=== PATIENT | male | born 1965 | race Caucasian/White ===

== ENCOUNTER 2022-03-19 13:58 | Inpatient (IN) | payer MEDICAID ==
[~2022-03-19] VITALS: Ht 165.1 cm; Wt 68.0 kg
[2022-03-19 14:07] VITALS: BP_SYST 128
--- NOTE | 2022-03-19 16:00 | NUR ---
ER Dr. Castellon examining patient on [facility] in [facility].
--- NOTE | 2022-03-19 16:52 | NUR ---
Placed in room 6 . Placed on alarm security or surveillance monitor, blood pressure machine and pulse oximeter. To gown for exam. Side rails up. Report given to MAGGIE BOOKER.
--- NOTE | 2022-03-19 16:54 | NUR ---
Assumed care of patient MARIAN after he was seen slumped over in wheelchair. Patient has been unresponsive and unable to retrieve a hx from at this time. Altered mental status, A&Ox0. Strong odor of urine coming from patient and belongings. maintenance shop technician report patient has hx of parapalegia and relies on wheelchair for mobility. maintenance shop technician state that wheelchair was left at scene because it was covered in human urine and feces. Patient appears in no acute distress and is sleeping on gurney.
--- NOTE | 2022-03-19 17:00 | NUR ---
LAB AT THE BEDSIDE FOR BLOOD DRAW
--- NOTE | 2022-03-19 17:00 | NUR ---
PT BIBA AFTER BEING FOUND SLUMMED OVER ON THE STREET IN HIS WHEELCHAIR, SOILED IN FECES AND URINE. PT ARRIVES INCOMPREHENSIBLE, UNABLE TO ANSWER QUESTIONS MEANINGFULLY, DISHEVELED AND MALODEROUS. PT IS TACHYCARDIC IN 120S OTHER VSS
--- NOTE | 2022-03-19 17:05 | NUR ---
PER EMS THEY DID NOT BRING PT'S WHEELCHAIR DUE TO IT BEING SOILED, PT WILL NEED WC FOR DDC
[2022-03-19 17:09] LABS: HEMATOCRIT 32.9 % (36-54); HEMOGLOBIN 9.6 g/dL (14.0-18.0); MEAN CORPUSCULAR HEMOGLOBIN 19 pg (27-31); MEAN CORPUSCULAR HGB CONC 29 % (32-36); MEAN CORPUSCULAR VOLUME 66 fL (79.0-98.0); PLATELET COUNT (AUTO) 319 K/uL (130-430); RED BLOOD CELL COUNT(AUTO) 4.97 MIL/uL (4.2-6.2); RED CELL DISTRIBUTION WIDTH 17.8 % (9.0-15.0); WHITE BLOOD COUNT (AUTO) 23.8 K/uL (4.8-10.8)
[2022-03-19 17:15] LABS: ANION GAP 14 (5-15); CALCIUM 8.3 mg/dL (8.4-11.0); CHLORIDE 102 mmol/L (98-107); CREATININE 0.64 mg/dL (0.55-1.30); GLUCOSE 89 mg/dL (70-99); POTASSIUM 3.4 mmol/L (3.5-5.1); SODIUM SERUM 137 mmol/L (136-145); UREA NITROGEN, BLOOD 13 mg/dL (8-21)
[2022-03-19 17:17] LABS: GFR AFRICAN AMERICAN 167 mL/min (>90)
[2022-03-19 17:26] LABS: ALANINE AMINOTRANSFERASE 43 U/L (12-78); ALBUMIN 3.2 g/dL (3.4-4.8); ASPARTATE AMINOTRANSFERASE 39 U/L (10-37); LACTATE DEHYDROGENASE 246 U/L (85-227); TOTAL BILIRUBIN 2.1 mg/dL (0.0-1.0)
[2022-03-19 17:28] LABS: BAND % (MANUAL) 2 % (0-6); BASOPHILS % (MANUAL) 0 % (0-2); EOSINOPHILS % (MANUAL) 0 % (0-7); LYMPHOCYTES % (MANUAL) 10 % (20-46); MONOCYTES % (MANUAL) 6 % (0-11)
[2022-03-19] MEDS ORDERED: NACL 0.9% 1,000 ML IV ONE ×2 (17:30→19:45)
--- NOTE | 2022-03-19 17:30 | NUR ---
COVID SWAB DONE AND SENT TO LAB
--- NOTE | 2022-03-19 17:35 | NUR ---
PT'S CLOTHING REMOVED, SOAKED IN OLD URINE, MALODEROUS, REDENNED SKIN TO THIGHS,BUTTOCKS, NEAR PENIS AND ABD. HOT TO TOUCH. PT IS ABLE TO NOD ANSWERS TO QUESTIONS BUT IS A POOR HISTORIAN.
--- NOTE | 2022-03-19 17:45 | NUR ---
PT'S IV INFILTRATED. REMOVED AND BLEEDING CONTROLLED WITH GAUZE. # 20 gauge angiocath placed to RFA. Use of asceptic technique. Opsite placed over site. Blood return noted. Flushed with 10 cc of normal saline. No evidence of infiltration noted. Patient tolerated well.
[2022-03-19 17:54] LABS: INR 1.6 (0.80-1.20); PROTHROMBIN TIME 16.6 SECS (9.5-12.5)
[2022-03-19 17:54] LABS: BILIRUBIN,URINE NEGATIVE (NEGATIVE); BLOOD, URINE NEGATIVE (NEGATIVE); CLARITY/URINE CLEAR (CLEAR); COLOR,URINE YELLOW (YELLOW); GLUCOSE,URINE NEGATIVE (NEGATIVE); KETONES,URINE 2+ (NEGATIVE); LEUKOCYTE ESTERASE ,URINE NEGATIVE (NEGATIVE); NITRITE, URINE NEGATIVE (NEGATIVE); PH,URINE 6.5 (5.0-8.0); PROTEIN URINE 1+ (NEGATIVE)
[2022-03-19] MEDS ORDERED: cefTRIAXone 1 GM in D5W 50 ML IV ONE (18:00)
[2022-03-19] MEDS ORDERED: VANCOMYCIN HCL 1,000 MG in NS 250 ML IV ONE (18:00)
[2022-03-19] MEDS ORDERED: VANCOMYCIN HCL 1000 MG/VIAL IV ONE (18:01)
[2022-03-19] MEDS ORDERED: cefTRIAXone 1 GM VIAL ONE ×2 (18:01)
[2022-03-19 18:09] LABS: BACTERIA,URINE FEW /HPF (None Seen); MUCUS,URINE None Seen /LPF (None Seen); RBC,URINE 0-3 /HPF (0-3); WBC,URINE 0-3 /HPF (0-3)
--- NOTE | 2022-03-19 18:45 | NUR ---
Patient transported to radiology via GURNEY, accompanied by STAFF.
--- NOTE | 2022-03-19 18:55 | NUR ---
Returned from radiology, back to room.
--- NOTE | 2022-03-19 19:17 | NUR ---
REPORT GIVEN TO MAGGIE WEATHERS FOR CONTINUING CARE
--- NOTE | 2022-03-19 19:30 | NUR ---
ASSUME CARE OF THIS PATIENT ASLEEP OPENS EYES TO VERBAL STIMULI, PATIENT APPEARS DROWSY, PT NOD TO QUESTION. UNABLE TO GET MEDICAL HISTORY ON THIS PATIENT AT THIS TIME. IVF INFUSING, NOTED ST ON CARDIAC MONITORS, INFORMED DR. ROPER ON PATIENT CURRENT VIATALS. ORDER TO RECEIVED ANOTHER 1L OF NS BOLUS. WILL CONTINUE TO MONITOR.
--- NOTE | 2022-03-19 19:35 | NUR ---
ASSUME CARE OF THIS PATIENT ASLEEP OPENS EYE TO INTERMITTENTLY TO VERVBAL STIMULI APPEARS DROWSY. PER REPORT RECEIVED PT FOUND ON THE STREET BY YU WILCOX. PER REPORT UPON ER ARRIVAL PT WAS SOILED WITH FECES AND URINE. NOTED RUE CONTRACTED. +4 EDEMA TO BLE AND NOTED REDNESS TO PT THIGH AREAS. UNABLE TO GET OTHER MEDICAL HSITORY AT THIS TIME. WILL CONTINUE TO MONITOR.
--- NOTE | 2022-03-19 19:52 | NUR ---
CALLED ADMITTING SPOKE TO KRISTOPHER TO CALL [facility] FOR ADMISSION AUTH.
--- NOTE | 2022-03-19 20:37 | NUR ---
Randa antonio in [facility] - 03/19/22 at 2038 by [id number] FEED PATIENT WITH JELLO AND PUDDING, PATIENT TOLERATED WELL.
[2022-03-19] MEDS: NACL 0.9% 1,000 ML IV SCH (23:22)
--- NOTE | 2022-03-19 23:54 | NUR ---
SPOKE WITH PATIENT ADONAY GRANADOS, AND GET INFO ON PATIENT, INFORMED HER THAT PATIENT HERE AND BIBA FOUND ON THE [place], [place]. SHE STATED THAT PATIENT USED TO HAVE A PLACED TO STAY, UNCLEAR IF PATIENT IS HOMELESS. 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 SHE ALSO STATED THAT PT IS KNOW FOR OPIODS AND METH ABUSE. PER ROBERTA INCASE PATIENT WILL BE DC SHE CAN BE REACH AT [phone].
--- NOTE | 2022-03-20 01:15 | NUR ---
Transfer pt via gurney to room 105, pt asleep and drowsy. SBAR report given to Jason SERRANO
--- NOTE | 2022-03-20 02:37 | NUR ---
PATIENT IS A 56 YEAR OLD MALE ADMITTED UNDER THE CARE OF DOCTOR WERO PEGUERO MD FOR LOWER EXTREMITY CELLULITIS. HARSH MEAN RN
[2022-03-20 02:44] VITALS: BP_SYST 143
[2022-03-20 04:55] VITALS: BP_SYST 166
--- NOTE | 2022-03-20 07:48 | NUR ---
INITIAL ROUNDS Received pt AAOx1, pt mumbled "move my legs'. Plan of care for the reviewed with pt-pt just mumbling. IVF infusing well to RFA at ordered rate with no s/s resp distress, no s/s pain or discomfort once he was repositioned. HOB elevated for aspiration precautions, side rails up x3, bed alarm on, room close to nursing station for safety. Call light within reach.
[2022-03-20] MEDS ORDERED: MUPIROCIN 2% TOPICAL OINTMENT 22 GM NS PRN (08:30)
[2022-03-20] MEDS ORDERED: MORPHINE 2 MG/ML INJ. SYRINGE IVP PRN ×2 (08:30)
[2022-03-20] MEDS ORDERED: MAGNESIUM SULFATE 50 ML IV PRN (08:30)
[2022-03-20] MEDS ORDERED: NALOXONE HCL 0.4 MG/ML AMP (NARCAN) IVP PRN ×2 (08:30)
[2022-03-20] MEDS ORDERED: ONDANSETRON HCL 4 MG/2 ML VIAL IVP PRN (08:30)
[2022-03-20] MEDS ORDERED: ACETAMINOPHEN 325 MG TABLET PO PRN (08:30)
[2022-03-20] MEDS ORDERED: POTASSIUM CHLORIDE 20 MEQ TAB.PRT.SR PO PRN (08:30)
[2022-03-20] MEDS ORDERED: DOCUSATE SODIUM 100 MG CAPSULE PO PRN (08:30)
[2022-03-20] MEDS ORDERED: LORazepam 2 MG/ML VIAL IVP PRN (08:30)
[2022-03-20] MEDS ORDERED: ZOLPIDEM TARTRATE 5 MG TABLET PO PRN (08:30)
[2022-03-20] MEDS ORDERED: METOPROLOL TARTRATE 5 MG/5 ML AMPUL IVP PRN (08:45)
--- NOTE | 2022-03-20 08:53 | NUR ---
EMESIS Pt vomited up thin, brown emesis, pt cleaned up, mouth rinsed and fresh towels placed. Will give Zofran as ordered.MD aware and order given for GI consult. Aspiration precautions remain in place.
[2022-03-20] MEDS: METOPROLOL TARTRATE 25 MG TABLET PO SCH ×2 (09:00→20:53)
[2022-03-20] MEDS: HEPARIN SODIUM,PORCINE 5,000 UNITS/ML VIAL SUBCUT SCH ×2 (09:00→20:55)
[2022-03-20] MEDS ORDERED: ONDANSETRON HCL 4 MG/2 ML VIAL ONE (09:06)
[2022-03-20] MEDS: metroNIDAZOLE 500 mg/NS 100 ML IV SCH ×3 (09:15→23:00)
[2022-03-20 09:21] LABS: BASOPHILS % (AUTO) 0.1 % (0.0-2.0); HEMATOCRIT 29.3 % (36-54); HEMOGLOBIN 9.1 g/dL (14.0-18.0); LYMPHOCYTES # (AUTO) 0.9 K/uL (1.0-5.5); LYMPHOCYTES % (AUTO) 5.6 % (20.5-51.5); MEAN CORPUSCULAR HEMOGLOBIN 20 pg (27-31); MEAN CORPUSCULAR HGB CONC 31 % (32-36); MEAN CORPUSCULAR VOLUME 64 fL (79.0-98.0); NEUTROPHILS # (AUTO) 14.5 K/uL (1.8-7.7); NEUTROPHILS % (AUTO) 88.3 % (40.0-70.0); PLATELET COUNT (AUTO) 333 K/uL (130-430); RED BLOOD CELL COUNT(AUTO) 4.58 MIL/uL (4.2-6.2); RED CELL DISTRIBUTION WIDTH 17.6 % (9.0-15.0); WHITE BLOOD COUNT (AUTO) 16.4 K/uL (4.8-10.8)
--- NOTE | 2022-03-20 09:28 | NUR ---
CONSULT ID LE CELLULITIS,UTI DR MUELLER [phone] S/W [place] OFFICE
--- NOTE | 2022-03-20 09:29 | NUR ---
CONSULT GI INTRACTABLE VOMITING DR BARRON [phone] S/W [place] OFFICE
--- NOTE | 2022-03-20 09:30 | NUR ---
CONSULT NEUROLOGY ALTERED DR DILLARD.BARBARA SENT TEXT MESSAGE TO DR DILLARD
[2022-03-20 11:16] LABS: ACETAMINOPHEN < 1 ug/mL (1-30)
[2022-03-20 11:33] VITALS: BP_SYST 152
--- NOTE | 2022-03-20 12:15 | NUR ---
[employer]riculture Internship CARTRIDGE MAKER Meche attempted engagement with patient at the request of Process Description Writer Jero to assess for housing status and social work professor needs. Patient was vomiting and unable to meet CARTRIDGE MAKER will continue to be available as needed
--- NOTE | 2022-03-20 13:06 | NUR ---
STELLA TECH HERE TO TAKE PATIENT TO [facility]. PATIENT VOMITING DARK THIN WATERY EMESIS AND IS AT RISK TO ASPIRATION THE PT WILL LIE ON HIS BACK FOR A PERIOD OF TIME. WILL NOTIFY
[2022-03-20] MEDS: NACL 0.9% 1,000 ML IV SCH ×2 (14:26→17:15)
[2022-03-20] MEDS: FLUCONAZOLE 200 mg/ NS 100 ML IV SCH (14:28)
[2022-03-20 15:25] VITALS: BP_SYST 149
[2022-03-20 16:56] LABS: BARBITURATE, URINE NEGATIVE (NEG <=200); METHAMPHETAMINES SCREEN,URINE POSITIVE (NEG <=500); OPIATE, URINE POSITIVE (NEG <=100); URINE AMPHETAMINE POSITIVE (NEG <=500)
[2022-03-20 16:57] LABS: BENZODIAZEPINE, URINE NEGATIVE (NEG <=150); CANNABINOID, URINE NEGATIVE (NEG <=50); COCAINE, URINE NEGATIVE (NEG <=150); PHENCYCLIDINE SCREEN,URINE NEGATIVE (NEG <=25); UR TRICYCLIC ANTIDEPRESSANTS NEGATIVE (NEG <=300); URINE METHADONE NEGATIVE (NEG <=200); URINE OXYCODONE SCREEN NEGATIVE (NEG <=100); URINE PROPOXYPHENE SCREEN NEGATIVE (NEG <=300)
[2022-03-20] MEDS: cefTRIAXone 1 GM IVPB PREMIX 50 ML IV SCH (18:27)
--- NOTE | 2022-03-20 19:28 | NUR ---
CLOSING NOTE Pt resting quietly in bed with no s/s resp distress, no s/s pain or discomfort, no further emesis. IVF infusing well at ordered rate with no s/s infiltration to site. ASpiration, skin and safety precautions remain in place. Call light within reach.
--- NOTE | 2022-03-20 20:00 | NUR ---
Received pt AAOx1, pt asleep upon primary assessment. Plan of care for the reviewed with pt-pt just mumbling. IVF infusing well to lungs diminished at bases, bowel sounds present. No sign of coffee ground emesis upon handoff. Pt has EEG and HIDA scan scheduled for the AM possibly HOB elevated for aspiration precautions, side rails up x3, bed alarm on, room close to nursing station for safety. Call light within reach.
[2022-03-20 22:45] VITALS: BP_SYST 129
[2022-03-20 22:46] VITALS: BP_SYST 129
[2022-03-21 00:36] VITALS: BP_SYST 139
--- NOTE | 2022-03-21 02:46 | NUR ---
pt present with coffe ground emesis. changed linens and gown. Pt resting comfortable on rught side. Will continue to moitor
[2022-03-21] MEDS: NACL 0.9% 1,000 ML IV SCH ×3 (03:15→15:27)
[2022-03-21] MEDS: metroNIDAZOLE 500 mg/NS 100 ML IV SCH ×3 (06:02→21:12)
--- NOTE | 2022-03-21 07:15 | NUR ---
OPENING NOTE RECEIVED SBAR FROM NIGHT RN. PATIENT IN BED, RESPIRATIONS EVEN, NON LABORED, BED IN LOW AND LOCKED POSITION, CALL LIGHT WITHIN REACH, BED ALARM ON. IVF'S RUNNING ORDERED.
[2022-03-21 08:00] VITALS: BP_SYST 135
--- NOTE | 2022-03-21 08:15 | NUR ---
nurse note patient agitated, unable to verbalize needs, patient dry, repositioned, continues to yell out. bed in low and locked position, call light within reach, bed alarm on.
[2022-03-21] MEDS: METOPROLOL TARTRATE 25 MG TABLET PO SCH ×2 (08:19→21:11)
[2022-03-21] MEDS: HEPARIN SODIUM,PORCINE 5,000 UNITS/ML VIAL SUBCUT SCH ×2 (08:19→21:00)
--- NOTE | 2022-03-21 09:00 | NUR ---
BATHROOM ASSISTED PATIENT AMBULATE TO THE BATHROOM VOIDED, RETURNED TO BED, BED IN LOW AND LOCKED POSITION CALL LIGHT WITHIN REACH. BED ALARM ON Addendum: 03/21/22 at 1331 by Deja Giordano RN entered on wrong patient
--- NOTE | 2022-03-21 09:00 | NUR ---
nurse note patient incontinent of bladder, provided milton care, changed linens, repositioned patient. no signs of distress noted
[2022-03-21 09:42] LABS: BASOPHILS # (AUTO) 0.1 K/uL (0.0-0.2); BASOPHILS % (AUTO) 0.5 % (0.0-2.0); EOSINOPHILS % (AUTO) 0.1 % (0.0-4.0); HEMATOCRIT 26.7 % (36-54); HEMOGLOBIN 8.3 g/dL (14.0-18.0); LYMPHOCYTES # (AUTO) 1.2 K/uL (1.0-5.5); LYMPHOCYTES % (AUTO) 10.7 % (20.5-51.5); MEAN CORPUSCULAR HEMOGLOBIN 20 pg (27-31); MEAN CORPUSCULAR HGB CONC 31 % (32-36); MEAN CORPUSCULAR VOLUME 65 fL (79.0-98.0); MONOCYTES # (AUTO) 0.7 K/uL (0.0-1.0); MONOCYTES % (AUTO) 6.4 % (1.7-9.3); NEUTROPHILS # (AUTO) 9.6 K/uL (1.8-7.7); NEUTROPHILS % (AUTO) 82.3 % (40.0-70.0); PLATELET COUNT (AUTO) 333 K/uL (130-430); RED BLOOD CELL COUNT(AUTO) 4.11 MIL/uL (4.2-6.2); RED CELL DISTRIBUTION WIDTH 17.9 % (9.0-15.0); WHITE BLOOD COUNT (AUTO) 11.6 K/uL (4.8-10.8)
[2022-03-21 10:06] LABS: C-REACTIVE PROTEIN QUANT 15.3 mg/dL (0-0.5); CALCIUM 7.3 mg/dL (8.4-11.0); CREATININE 0.5 mg/dL (0.55-1.30)
[2022-03-21 10:17] LABS: POTASSIUM 2.8 mmol/L (3.5-5.1)
--- NOTE | 2022-03-21 10:20 | NUR ---
critical lab potassium 2.8. Informed Dr Ochoa, on the floor. New orders received
[2022-03-21] MEDS ORDERED: KCL 20 mEq in NS 1000 mL 1,000 ML IV SCH (10:30)
[2022-03-21] MEDS ORDERED: POTASSIUM CHLORIDE 60 MEQ in NS 500 ML IV ONE (11:00)
[2022-03-21 11:24] VITALS: BP_SYST 140
[2022-03-21 12:06] LABS: HEPATITIS A AB, IgM Negative (Negative); HEPATITIS B CORE AB, IgM Negative (Negative); HEPATITIS B SURFACE AG Negative (Negative)
--- NOTE | 2022-03-21 12:18 | NUR ---
SECURITY SERVICES SPECIALIST KUNAL Mcgregor responded to a request for social service support to address patient's housing status and assess for needs. KUNAL Mcgregor reviewed patient's medical record which depicts patient is homeless and was found in a wheelchair. Notes also depict EMS left wheelchair onsite due to be covered in urine and feces. KUNAL Mcgregor attempted to meet with patient but was unable to arouse patient. KUNAL consulted with assigned RN who shared patient has been asleep through out the day. FIELD APPLICATIONS SPECIALIST will followup with patient at a later time.
--- NOTE | 2022-03-21 12:56 | NUR ---
Discharge Planning: DCP faed pt referral to [facility] P#[phone] DCP to follow up
--- NOTE | 2022-03-21 13:13 | NUR ---
Patient will have a wheelchair delivered to the bedside by [facility]-ordered by [facility]
--- NOTE | 2022-03-21 13:32 | NUR ---
nurse note patient incontinent of bladder, provided milton care, changed linens, repositioned patient. no signs of distress noted
--- NOTE | 2022-03-21 13:54 | NUR ---
HIDA SCAN PATIENT LEFT FOR HIDA SCAN, VIA GURNEY. IV SL
--- NOTE | 2022-03-21 13:54 | NUR ---
iv LEFT AC IV BECAME DISLODGED. INTACT, NO BLEEDING.
--- NOTE | 2022-03-21 15:04 | NUR ---
Dietitian Recommendations * Resume clear liquid diet if/when medically appropriate * Advance diet if/when medically appropriate LP, RD Please refer to Nutrition Assessment for details. Addendum: 03/21/22 at [address] Amended: Links added.
--- NOTE | 2022-03-21 15:15 | NUR ---
missing med called pharm Diflucan missing from cassette. they will bring a new one
[2022-03-21] MEDS: FLUCONAZOLE 200 mg/ NS 100 ML IV SCH (15:27)
[2022-03-21 15:37] VITALS: BP_SYST 143
--- NOTE | 2022-03-21 16:24 | NUR ---
EGD CONSENT SPOKE WITH DR SMITH, INFORMED DUE TO PATIENT A & 0 X 1, THAT PATIENT IS UNABLE TO SIGN CONSENT FOR EGD, DR NEEDS TO PUT A NOT REGARDING MEDICAL NECESSITY.
--- NOTE | 2022-03-21 16:26 | NUR ---
EGD SPOKE WITH MAGGIE GARCIA IN GI. INFORMED THAT PATIENT IS A & O X 1. UNABLE TO SIGN CONSENT FOR EGD. DR BARRON AND DR SMITH NEED TO ATTEST TO MEDICAL NECESSITY FOR EGD. RADHA STATED THAT HE WILL INFORM DR BARRON IN THE MORNING
--- NOTE | 2022-03-21 16:32 | NUR ---
WHEELCHAIR INVENTORIED NEW WHEELCHAIR THAT WAS DELIVERED
--- NOTE | 2022-03-21 17:35 | NUR ---
nurse note patient incontinent of bladder, provided milton care, changed linens, repositioned patient. no signs of distress noted
--- NOTE | 2022-03-21 17:53 | NUR ---
EEG EEG BEING DONE BEDISDE
[2022-03-21] MEDS: cefTRIAXone 1 GM IVPB PREMIX 50 ML IV SCH (18:43)
--- NOTE | 2022-03-21 19:06 | NUR ---
closing note Provided SBAR to night RN. patient in bed, respirations even, non labored, bed in low and locked position. Call light within reach, bed alarm on. IVF's running as ordered. Endorsed care to night RN
--- NOTE | 2022-03-21 19:15 | NUR ---
OPENING NOTES Patient resting in bed - no s/s pain or distress noted. Respirations even and unlabored - head of bed elevated. IV site patent - no s/s redness, infection, or infiltration. Bed locked and in lowest position. Call light within reach. Patient confused and has no points of contact - scheduled for EGD tomorrow, therefore 2 doctors are needed for consent signing.
[2022-03-21 20:00] VITALS: BP_SYST 133
[2022-03-22 01:49] VITALS: BP_SYST 147
[2022-03-22] MEDS: NACL 0.9% 1,000 ML IV SCH ×2 (04:25→16:39)
[2022-03-22] MEDS: metroNIDAZOLE 500 mg/NS 100 ML IV SCH ×3 (06:58→22:41)
[2022-03-22 07:30] LABS: CALCIUM 7.1 mg/dL (8.4-11.0); CREATININE 0.45 mg/dL (0.55-1.30); POTASSIUM 3.3 mmol/L (3.5-5.1)
[2022-03-22 07:33] LABS: INR 1.3 (0.80-1.20); PROTHROMBIN TIME 13.3 SECS (9.5-12.5)
--- NOTE | 2022-03-22 07:44 | NUR ---
CLOSING NOTES Patient resting in bed - no s/s pain or distress noted. respirations even and unlabored - head of bed elevated. IV site patent - no s/ s redness, infection, or infiltration. patient moved to 112A at 0700 due to roommate being positive for MRSA. Cleaned at 0500 linens changed. At change of shift a GI nurse Manny states that a medical necessity form was needed to be signed by 2 doctors and placed in chart. However, charge nurse Samanta states that only the doctors need to put in an acknowledgement of medical necessity in their PROGRESS NOTES due to patient being confused and no steele of contract attorney. Endorsed to Cristina SERRANO
[2022-03-22 07:53] LABS: BASOPHILS % (AUTO) 0.4 % (0.0-2.0); EOSINOPHILS % (AUTO) 0.3 % (0.0-4.0); HEMOGLOBIN 8.7 g/dL (14.0-18.0); LYMPHOCYTES # (AUTO) 1.7 K/uL (1.0-5.5); LYMPHOCYTES % (AUTO) 20.3 % (20.5-51.5); MEAN CORPUSCULAR HEMOGLOBIN 20 pg (27-31); MEAN CORPUSCULAR HGB CONC 31 % (32-36); MEAN CORPUSCULAR VOLUME 66 fL (79.0-98.0); MONOCYTES # (AUTO) 0.5 K/uL (0.0-1.0); MONOCYTES % (AUTO) 6.2 % (1.7-9.3); NEUTROPHILS # (AUTO) 6.1 K/uL (1.8-7.7); PLATELET COUNT (AUTO) 351 K/uL (130-430); RED BLOOD CELL COUNT(AUTO) 4.26 MIL/uL (4.2-6.2); RED CELL DISTRIBUTION WIDTH 17.8 % (9.0-15.0); WHITE BLOOD COUNT (AUTO) 8.4 K/uL (4.8-10.8)
[2022-03-22 08:00] VITALS: BP_SYST 141
--- NOTE | 2022-03-22 08:00 | NUR ---
Morning notes: Pt A/Ox1 resting in bed, HOB down. No S/S of respiratory or cardiac distress, RFA 22G is clean dry and intact, with ordered fluids running. Fall and safety precautions in place, call light with in reach, will continue to monitor.
[2022-03-22 09:38] LABS: NEUTROPHILS % (AUTO) 72.8 % (40.0-70.0)
[2022-03-22] MEDS: METOPROLOL TARTRATE 25 MG TABLET PO SCH ×2 (10:29→22:41)
[2022-03-22] MEDS: HEPARIN SODIUM,PORCINE 5,000 UNITS/ML VIAL SUBCUT SCH ×2 (10:31→22:42)
[2022-03-22 11:39] VITALS: BP_SYST 131
[2022-03-22] MEDS: FLUCONAZOLE 200 mg/ NS 100 ML IV SCH (15:41)
[2022-03-22 16:27] VITALS: BP_SYST 134
[2022-03-22] MEDS: cefTRIAXone 1 GM IVPB PREMIX 50 ML IV SCH (18:18)
--- NOTE | 2022-03-22 19:01 | NUR ---
Closing notes: Pt A/Ox1 resting in bed, HOB down. No S/S of respiratory or cardiac distress, LFA 22G is clean dry and intact, with ordered fluids running. Fall and safety precautions in place, call light with in reach, will endorse to cyber instructor.
[2022-03-22 21:45] VITALS: BP_SYST 144
[2022-03-23] VITALS: BP_SYST 132
[2022-03-23] MEDS: NACL 0.9% 1,000 ML IV SCH ×2 (06:17→15:15)
[2022-03-23] MEDS: metroNIDAZOLE 500 mg/NS 100 ML IV SCH ×3 (06:17→23:39)
[2022-03-23 06:39] LABS: BASOPHILS % (AUTO) 0.7 % (0.0-2.0); EOSINOPHILS # (AUTO) 0.1 K/uL (0.0-0.4); EOSINOPHILS % (AUTO) 1.4 % (0.0-4.0); HEMATOCRIT 27.3 % (36-54); HEMOGLOBIN 8.4 g/dL (14.0-18.0); LYMPHOCYTES # (AUTO) 1.7 K/uL (1.0-5.5); LYMPHOCYTES % (AUTO) 29.3 % (20.5-51.5); MEAN CORPUSCULAR HEMOGLOBIN 20 pg (27-31); MEAN CORPUSCULAR HGB CONC 31 % (32-36); MEAN CORPUSCULAR VOLUME 65 fL (79.0-98.0); MONOCYTES # (AUTO) 0.4 K/uL (0.0-1.0); MONOCYTES % (AUTO) 7.8 % (1.7-9.3); NEUTROPHILS # (AUTO) 3.5 K/uL (1.8-7.7); PLATELET COUNT (AUTO) 352 K/uL (130-430); RED CELL DISTRIBUTION WIDTH 17.3 % (9.0-15.0); WHITE BLOOD COUNT (AUTO) 5.7 K/uL (4.8-10.8)
[2022-03-23 06:52] LABS: CREATININE 0.39 mg/dL (0.55-1.30)
--- NOTE | 2022-03-23 07:00 | NUR ---
PT SLEPT THROUGH MOST OF THE NIGHT. PT EASILY AROUSABLE THROUGHOUT THE NIGHT. PT DID NOT ATTEMPT TO CLIMB OUT OF BED. PT CLEANED AND REPOSITIONED THROUGH THE NIGHT.
[2022-03-23 07:42] LABS: NEUTROPHILS % (AUTO) 60.8 % (40.0-70.0)
[2022-03-23 08:00] VITALS: BP_SYST 141
--- NOTE | 2022-03-23 08:00 | NUR ---
Morning notes: Pt A/Ox1 resting in bed, HOB down. No S/S of respiratory or cardiac distress, LFA 22G is clean dry and intact, with ordered fluids running. Fall and safety precautions in place, call light with in reach, will continue to monitor.
[2022-03-23 08:23] LABS: CALCIUM 6.8 mg/dL (8.4-11.0); POTASSIUM 2.9 mmol/L (3.5-5.1)
[2022-03-23] MEDS ORDERED: KCL 20 mEq in 100 mL (PREMIX) 100 ML IV SCH (09:00)
--- NOTE | 2022-03-23 09:34 | NUR ---
RN note: Received critical potassium 2.7, and calcium 6.8, notified Dr. Ochoa at [facility], ordered IV 40meq of K.
[2022-03-23] MEDS: METOPROLOL TARTRATE 25 MG TABLET PO SCH ×2 (10:33→23:32)
[2022-03-23] MEDS: HEPARIN SODIUM,PORCINE 5,000 UNITS/ML VIAL SUBCUT SCH ×2 (10:35→23:39)
--- NOTE | 2022-03-23 11:00 | NUR ---
RN note: IV potassium not available yet, called pharmacy.
[2022-03-23 12:30] VITALS: BP_SYST 138
[2022-03-23] MEDS: FLUCONAZOLE 200 mg/ NS 100 ML IV SCH (13:58)
--- NOTE | 2022-03-23 15:00 | NUR ---
RN note: IV potassium still not available, will call pharmacy again.
[2022-03-23 16:57] VITALS: BP_SYST 152
[2022-03-23] MEDS: cefTRIAXone 1 GM IVPB PREMIX 50 ML IV SCH (18:00)
--- NOTE | 2022-03-23 19:01 | NUR ---
Closing notes: Pt A/Ox1 resting in bed, HOB down. No S/S of respiratory or cardiac distress, LFA 22G is clean dry and intact, with ordered fluids running. Fall and safety precautions in place, call light with in reach, will endorse to shift mgr.
--- NOTE | 2022-03-23 19:04 | NUR ---
RN note: IV potassium now available, will endorse to sustainability coach.
[2022-03-24] MEDS: NACL 0.9% 1,000 ML IV SCH (05:20)
[2022-03-24 06:26] LABS: BASOPHILS # (AUTO) 0.1 K/uL (0.0-0.2); BASOPHILS % (AUTO) 0.7 % (0.0-2.0); EOSINOPHILS # (AUTO) 0.1 K/uL (0.0-0.4); EOSINOPHILS % (AUTO) 1.9 % (0.0-4.0); HEMATOCRIT 28.5 % (36-54); LYMPHOCYTES # (AUTO) 2.1 K/uL (1.0-5.5); LYMPHOCYTES % (AUTO) 29.1 % (20.5-51.5); MEAN CORPUSCULAR HEMOGLOBIN 20 pg (27-31); MEAN CORPUSCULAR HGB CONC 31 % (32-36); MEAN CORPUSCULAR VOLUME 65 fL (79.0-98.0); MONOCYTES # (AUTO) 0.5 K/uL (0.0-1.0); MONOCYTES % (AUTO) 7.6 % (1.7-9.3); NEUTROPHILS # (AUTO) 4.3 K/uL (1.8-7.7); NEUTROPHILS % (AUTO) 60.7 % (40.0-70.0); PLATELET COUNT (AUTO) 443 K/uL (130-430); RED BLOOD CELL COUNT(AUTO) 4.41 MIL/uL (4.2-6.2); RED CELL DISTRIBUTION WIDTH 17.2 % (9.0-15.0); WHITE BLOOD COUNT (AUTO) 7.2 K/uL (4.8-10.8)
[2022-03-24 06:47] LABS: CREATININE 0.45 mg/dL (0.55-1.30); POTASSIUM 3.1 mmol/L (3.5-5.1)
[2022-03-24 07:16] LABS: CALCIUM 6.9 mg/dL (8.4-11.0)
--- NOTE | 2022-03-24 07:30 | NUR ---
Report received from outgoing nurse and care received
[2022-03-24 08:00] VITALS: BP_SYST 120
--- NOTE | 2022-03-24 08:15 | NUR ---
When taking morning VS patient stated he wanted to leave AMA and would sign paperwork. States he doesn't want to take anymore meds and leave in his wheelchair. Pt is A&Ox3 and able to states he's able to sign paperwork
[2022-03-24] MEDS: HEPARIN SODIUM,PORCINE 5,000 UNITS/ML VIAL SUBCUT SCH (09:53)
[2022-03-24] MEDS: METOPROLOL TARTRATE 25 MG TABLET PO SCH (09:53)
--- NOTE | 2022-03-24 10:49 | NUR ---
Pt understands it is against medical advise to leave, states he does not want anymore medication, wants his IV catheter removed, and wants to leave. Already signed AMA form. IV catheter was removed, and patient was assisted into his wheelchair to leave the hospital at 1045, AMA form signed and placed in the chart.
--- NOTE | 2022-03-24 13:10 | NUR ---
AMA dispo code 07
== END 2022-03-24 10:50 | disposition left against medical advice (07) | DRG 720 ==
LOC: SED 13:58 → STU 21:02
PROVIDERS: ADMIT General Practice; ATTEND General Practice
PROC: 4A10X4Z Monitoring of Central Nervous Electrical Activity, External Approach (ICD-10-PCS; principal; 2022-03-21)
DX: A41.9 Sepsis, unspecified organism (principal); G93.41 Metabolic encephalopathy; G82.20 Paraplegia, unspecified; D63.8 Anemia in other chronic diseases classified elsewhere; L03.115 Cellulitis of right lower limb; L03.116 Cellulitis of left lower limb; N39.0 Urinary tract infection, site not specified; I10 Essential (primary) hypertension; Z20.822 Contact with and (suspected) exposure to COVID-19; K80.20 Calculus of gallbladder without cholecystitis without obstruction; F15.10 Other stimulant abuse, uncomplicated; Z53.29 Procedure and treatment not carried out because of patient's decision for other reasons; D75.839 Thrombocytosis, unspecified; K21.9 Gastro-esophageal reflux disease without esophagitis; Z99.3 Dependence on wheelchair
CPT/HCPCS: 36415; 70450-TC; 71045; 76376; 76705; 78226; 80048; 80053; 80074; 80307; 81000; 82140; 82550; 83036; 83605; 83615; 83690; 83735; 84484; 85007; 85025; 85027; 85384; 85610-TC; 85730-TC; 86140; 87040; 87086; 93005; 95816; 96365; 96366; 96367; 99291; A9537; G0378; G0480; G0481; J0696; J1450; J1644; J2060; J2405; J3370; J3480; J3490; J7040